=== PATIENT | female | born 1975 | race Caucasian/White ===

== ENCOUNTER 2016-10-24 19:10 | Inpatient (IN) | payer OTHER ==
[2016-10-24] MEDS ORDERED: Sodium Chloride 0.9% 1,000 ML IV ONE ×2 (19:48→21:18)
[2016-10-24] MEDS ORDERED: Iohexol 240 (50 ml) PO STA (19:48)
[2016-10-24] MEDS ORDERED: Iohexol 240 (50 ml) ONE (20:01)
[2016-10-24 20:04] LABS: BASO % 0.3 % (0.0-2.0); EOS # 0.1 K/uL (0.0-0.7); EOS % 1.4 % (0.0-4.0); HEMATOCRIT 31.9 % (34.0-47.0); LYMPH # 1.5 K/uL (1.0-4.3); LYMPH % 20.7 % (20.0-40.0); MEAN CELL VOLUME 73.4 fL (81.0-99.0); MEAN CORPUSCULAR HEMOGLOBIN 23.2 pg (27.0-31.0); MEAN CORPUSCULAR HGB CONC 31.6 g/dL (33.0-37.0); MEAN PLATELET VOLUME 7.4 fL (7.2-11.7); MONO # 0.4 K/uL (0.0-0.8); MONO % 6.1 % (0.0-10.0); RED CELL DISTRIBUTION WIDTH 16.4 % (11.5-14.5); WHITE BLOOD COUNT 7.2 K/uL (4.8-10.8)
[2016-10-24] MEDS ORDERED: Iodixanol 320 MG/ML 100 ML BOTTLE IV ONE (20:09)
[2016-10-24 20:11] LABS: CHLORIDE 103 mmol/L (98-107)
[2016-10-24 20:12] LABS: POTASSIUM 3.9 mmol/L (3.6-5.2); SODIUM 138 mmol/L (132-148)
--- NOTE | 2016-10-24 20:13 | C.PDOC ---
History Of Present Illness 40 y/o female presents to ED with complaints of abdominal discomfort and feeling "bloated" since last week. Patient states pain increased today with associated nausea, vomiting and loose stool. Patient reports she was able to eat after vomiting episode and loose stool resolved. Patient states pain became worse during the day which prompted visit to ED today. Patient denies fever, chills, sick contacts, urinary symptoms or any other complaints at this time. LMP 10/04/16. Time Seen by Provider: 10/24/16 19:43 Chief Complaint (Nursing): Abdominal Pain History Per: Patient History/Exam Limitations: no limitations Onset/Duration Of Symptoms: Days Current Symptoms Are (Timing): Still Present Past Medical History Reviewed: Historical Data, Nursing Documentation, Vital Signs Vital Signs: Last Vital Signs Temp 97.8 F 10/24/16 23:36 Pulse 92 H 10/24/16 23:36 Resp 18 10/24/16 23:36 BP 102/62 10/24/16 23:36 Pulse Ox 98 10/24/16 23:36 - Medical History PMH: Anemia Family History: States: No Known Family Hx - Social History Hx Tobacco Use: No Hx Alcohol Use: Yes Hx Substance Use: No - Immunization History Hx Tetanus Toxoid Vaccination: No Hx Influenza Vaccination: No Hx Pneumococcal Vaccination: No Review Of Systems Except As Marked, All Systems Reviewed And Found Negative. Constitutional: Negative for: Fever, Chills Gastrointestinal: Positive for: Vomiting, Abdominal Pain, Diarrhea. Negative for: Hematochezia Genitourinary: Negative for: Dysuria, Frequency, Hematuria Musculoskeletal: Negative for: Back Pain Skin: Negative for: Rash Physical Exam - Physical Exam Appears: Non-toxic, Other (uncomfortable) Skin: Normal Color, Warm, Dry, No Rash Head: Atraumatic, Normacephalic Eye(s): bilateral: Normal Inspection Oral Mucosa: Moist Cardiovascular: Rhythm Regular Respiratory: Normal Breath Sounds, No Rales, No Rhonchi, No Wheezing Gastrointestinal/Abdominal: Bowel Sounds (Quiet), Soft, Tenderness (to epigastric and suprapubic area), Guarding, No Rebound Back: No CVA Tenderness Extremity: Normal ROM, Capillary Refill (<2 seconds) Neurological/Psych: Oriented x3, Normal Speech ED Course And Treatment - Laboratory Results Result Diagrams: 10/24/16 19:58 10/24/16 19:58 Lab Interpretation: No Acute Changes O2 Sat by Pulse Oximetry: 96 (RA) Pulse Ox Interpretation: Normal - CT Scan/US CT abdomen and pelvis with contrast Other Rad Studies (CT/US): Read By Radiologist, Radiology Report Reviewed CT/US Interpretation: enlarged appendix measuring up to 0.9cm in diameter. Mild mucosal enhancement. Apparent minimal stranding about appendix. Reevaluation Time: 23:55 Reassessment Condition: Improved - Physician Consult Information Time Consulting Physician Contacted: 23:55 Physician Contacted: Owen Balderas Outcome Of Conversation: Patient to be admitted to Dr Petty and he will evaluate. Disposition - Disposition Disposition: HOSPITALIZED Disposition Time: 23:56 Condition: STABLE - POA Present On Arrival: None - Clinical Impression Clinical Impression: Appendicitis - Scribe Statement The provider has reviewed the documentation as recorded by the Jorgeibtalisha Morrow All medical record entries made by the Jorgeibtalisha were at my direction and personally dictated by me. I have reviewed the chart and agree that the record accurately reflects my personal performance of the history, physical exam, medical decision making, and the department course for this patient. I have also personally directed, reviewed, and agree with the discharge instructions and disposition.
[2016-10-24 20:14] LABS: ALB/GLOB RATIO 1.1 (1.0-2.1); ALKALINE PHOSPHATASE 145 U/L (38-126); AST/SGOT 37 U/L (14-36); BILIRUBIN,TOTAL 0.6 mg/dL (0.2-1.3); BLOOD UREA NITROGEN 10 mg/dL (7-17); CARBON DIOXIDE 21 mmol/L (22-30); GFR AFRICAN-AMERICAN > 60; TOTAL PROTEIN 7.3 g/dL (6.3-8.3)
[2016-10-24 20:15] LABS: ALT/SGPT 60 U/L (9-52); CALCIUM 8.2 mg/dl (8.6-10.4); GLUCOSE,RANDOM 87 mg/dL (65-105)
[2016-10-24 20:38] LABS: RBC URINE 10 /hpf (0-3); URINE BACTERIA RARE (<OCC); URINE BILIRUBIN NEGATIVE (NEGATIVE); URINE BLOOD 2+ (NEGATIVE); URINE COLOR Yellow (YELLOW); URINE GLUCOSE (UA) NORMAL (Normal); URINE KETONE NEGATIVE (NEGATIVE); URINE LEUKOCYTE ESTERASE NEG Leu/uL (Negative); URINE PROTEIN NEGATIVE (NEGATIVE); URINE UROBILINOGEN NORMAL mg/dL (0.2-1.0); WBC URINE < 1 /hpf (0-5)
--- NOTE | 2016-10-24 23:30 | CT ---
EXAM: CT Abdomen and Pelvis With Intravenous Contrast CLINICAL HISTORY: 40 years old, female; Pain; Abdominal pain; Periumbilical; Additional info: Abd pain TECHNIQUE: Axial computed tomography images of the abdomen and pelvis with intravenous contrast. All CT scans at this facility use one or more dose reduction techniques, viz.: automated exposure control; ma/kV adjustment per patient size (including targeted exams where dose is matched to indication; i.e. head); or iterative reconstruction technique. Coronal and sagittal reformatted images were created and reviewed. CONTRAST: 100 mL of VISIPAQUE 320 administered intravenously. COMPARISON: No relevant prior studies available. FINDINGS: Lower thorax: No acute findings. ABDOMEN: Liver: Unremarkable. No mass. Gallbladder and bile ducts: No calcified stones. No ductal dilation. Pancreas: No ductal dilation. No mass. Spleen: No splenomegaly. Adrenals: No mass. Kidneys and ureters: No mass. No hydronephrosis. Stomach and bowel: No definite mural thickening. No obstruction. Appendix: Enlarged appendix, measuring up to 0.9 cm in diameter. Mild mucosal enhancement. Apparent minimal stranding about appendix. PELVIS: Bladder: Unremarkable. Reproductive: Probable involuting RIGHT ovarian cyst/follicle. ABDOMEN and PELVIS: Intraperitoneal space: Small amount of fluid within RIGHT paracolic gutter. No free air. Bones/joints: Chronic L5 pars defects. No acute fracture. Soft tissues: Tiny umbilical hernia containing fat. Vasculature: Circumaortic LEFT renal vein. No aneurysm. Lymph nodes: No pathologically enlarged lymph nodes. IMPRESSION: 1. Findings concerning for appendicitis. Clinical correlation is needed. 2. Incidental/non-acute findings are described above.
[2016-10-25] MEDS ORDERED: Piperacillin/Tazobact 3.375 gm 100 ML IVPB ONE (00:24)
[2016-10-25] MEDS: Piperacillin/Tazobact 3.375 GM in Sodium Chloride 100 ML IVPB SCH ×3 (00:44→17:32)
--- NOTE | 2016-10-25 02:04 | CP.PCM.CON ---
<Rolando Adames - Last Filed: 10/25/16 01:55> History of Present Illness - History of Present Illness History of Present Illness: General Surgery Consult Re: acute appendicitis HPI: 40F presented to ED c/o abdominal pain that began this AM in the periumbilical region. Pt has never had this pain before but has had a bloating crampy feeling for 1 week with some diarrhea and subjective fevers earlier in the week. Pain has gotten worse and moved to the lower quadrants at this time and she had some emesis of food, no blood. Denies current F/C, N/V/D, BRBPR, chest pain, SOB, dysuria, back pain. PMH: Lupus, anemia PSH: tubal ligation SH: Occasional EtOH, no tobacco or drug use All: Codeine/tylenol - chest rash Meds: Denies Review of Systems - Review of Systems All systems: reviewed and no additional remarkable complaints except (as per HPI ) Past Patient History - Infectious Disease Hx of Infectious Diseases: None - Past Medical History & Family History Past Medical History?: No - Past Social History Smoking Status: Never Smoked - CARDIAC Hx Cardiac Disorders: No - PULMONARY Hx Respiratory Disorders: No - NEUROLOGICAL Hx Neurological Disorder: Yes Other/Comment: mac 2008 - HEENT Hx HEENT Problems: No - RENAL Hx Chronic Kidney Disease: No Hx Dialysis: No - ENDOCRINE/METABOLIC Hx Endocrine Disorders: Yes Hx Systemic Lupus Erythematosus: Yes - HEMATOLOGICAL/ONCOLOGICAL Hx Blood Disorders: Yes Hx Anemia: Yes - INTEGUMENTARY Hx Dermatological Problems: No - MUSCULOSKELETAL/RHEUMATOLOGICAL Hx Musculoskeletal Disorders: No Hx Falls: No - GASTROINTESTINAL Hx Gastrointestinal Disorders: No - GENITOURINARY/GYNECOLOGICAL Hx Genitourinary Disorders: No - PSYCHIATRIC Hx Psychophysiologic Disorder: No Hx Substance Use: No - SURGICAL HISTORY Hx Surgeries: No Hx Tubal Ligation: Yes (2010) - ANESTHESIA Hx Anesthesia: No Hx Anesthesia Reactions: No Meds Allergies/Adverse Reactions: Allergies Allergy/AdvReac Type Severity Reaction Status Date / Time acetaminophen AdvReac Verified 10/24/16 19:17 [From Tylenol-Codeine] codeine AdvReac Verified 10/24/16 19:17 [From Tylenol-Codeine] - Medications Medications: Current Medications Metronidazole (Flagyl) 500 mg in 100 mls @ 100 mls/hr IVPB Q12 [facility] Piperacillin Sod/Tazobactam (Sod 3.375 gm/ Sodium Chloride) 100 mls @ 200 mls/ hr IVPB Q8H [facility] [place] Last Admin: 10/25/16 00:44 Dose: 200 mls/hr Sodium Chloride (Sodium Chloride 0.9%) 1,000 mls @ 75 mls/hr IV .[id number] [facility] [place] Ketorolac Tromethamine (Toradol) 15 mg IVP Q6H [facility] [place] Stop: 10/29/16 19:31 Morphine Sulfate (Morphine) 2 mg IVP Q4 PRN PRN Reason: Pain, severe (8-10) Pantoprazole Sodium (Protonix Inj) 40 mg IVP DAILY [facility] [place] Physical Exam - Constitutional Appears: Non-toxic, No Acute Distress - Head Exam Head Exam: ATRAUMATIC, NORMOCEPHALIC - Eye Exam Eye Exam: EOMI. absent: Scleral icterus - ENT Exam ENT Exam: Mucous Membranes Dry Additional comments: trachea midline - Respiratory Exam Respiratory Exam: NORMAL BREATHING PATTERN. absent: Respiratory Distress - Cardiovascular Exam Cardiovascular Exam: RRR, +S1, +S2 - GI/Abdominal Exam GI & Abdominal Exam: Guarding, Rebound (over RLQ), Soft, Tenderness (in lower quadrants ). absent: Distended, Firm, Rigid Additional comments: + rosving's sign - Rectal Exam Rectal Exam: Deferred - Extremities Exam Extremities exam: Positive for: pedal pulses present. Negative for: calf tenderness, pedal edema - Back Exam Back exam: absent: CVA tenderness (L), CVA tenderness (R) - Neurological Exam Neurological exam: Alert, Oriented x3 - Psychiatric Exam Psychiatric exam: Normal Affect, Normal Mood - Skin Skin Exam: Dry, Warm Results - Vital Signs Recent Vital Signs: Last Vital Signs Temp 97.8 F 10/24/16 23:36 Pulse 92 H 10/24/16 23:36 Resp 18 10/24/16 23:36 BP 102/62 10/24/16 23:36 Pulse Ox 96 10/24/16 23:56 - Labs Result Diagrams: 10/24/16 19:58 10/24/16 19:58 - Imaging and Cardiology CT scan - abdomen Status: Image reviewed by me, Report reviewed by me Assessment & Plan - Assessment and Plan (Free Text) Assessment: 40F with acute appendicitis Plan: Zosyn NPO IVF analgesia Zofran Urine test EKG Likely OR Saturday Consent in chart Will D/W Dr. Andrey Adames PGY4 <Owen Balderas - Last Filed: 10/27/16 17:38> Results - Vital Signs Recent Vital Signs: Last Vital Signs Temp 98.3 F 10/26/16 08:35 Pulse 73 10/26/16 08:35 Resp 20 10/26/16 08:35 BP 94/60 L 10/26/16 08:35 Pulse Ox 97 10/26/16 08:35 - Labs Result Diagrams: 10/26/16 07:05 10/26/16 07:05 Attending/Attestation - Attestation I have personally seen and examined this patient.: Yes I have fully participated in the care of the patient.: Yes I have reviewed all pertinent clinical information: Yes Notes (Text): 10/27/16 17:38 Pt was seen and examined at bedside Agree with above note and assessment Pt with Acute Appendicitis OR for Lap appendectomy possible Open Consent NPO,IVF C.w IV antibiotics Plan d.w pt in detail Risk and benefit explained in detail.
[2016-10-25] MEDS: Sodium Chloride 0.9% 1,000 ML IV SCH ×2 (02:05→16:30)
--- NOTE | 2016-10-25 08:00 | CP.PCM.PN ---
Subjective - Date & Time of Evaluation Date of Evaluation: 10/25/16 Time of Evaluation: 09:00 - Subjective Subjective: PGY3 on medicine Dr. Petty service: Pt seen and examined at bedside this morning. Pt reports abdominal pain improved mildly with medicine. No other complaints at this time. NPO for surgery today. Objective - Vital Signs/Intake and Output Vital Signs (last 24 hours): Temp Pulse Resp BP Pulse Ox 98.7 F 86 20 107/71 96 10/25/16 04:10 10/25/16 04:10 10/25/16 04:10 10/25/16 04:10 10/25/16 04:10 - Medications Medications: Current Medications Metronidazole (Flagyl) 500 mg in 100 mls @ 100 mls/hr IVPB Q12 [facility] Piperacillin Sod/Tazobactam (Sod 3.375 gm/ Sodium Chloride) 100 mls @ 200 mls/ hr IVPB Q8H [facility] Last Admin: 10/25/16 00:44 Dose: 200 mls/hr Sodium Chloride (Sodium Chloride 0.9%) 1,000 mls @ 75 mls/hr IV .[id number] [facility] Last Admin: 10/25/16 02:05 Dose: 75 mls/hr Ketorolac Tromethamine (Toradol) 15 mg IVP Q6H [facility] Stop: 10/29/16 19:31 Last Admin: 10/25/16 06:41 Dose: 15 mg Morphine Sulfate (Morphine) 2 mg IVP Q4 PRN PRN Reason: Pain, severe (8-10) Ondansetron HCl (Zofran Inj) 4 mg IVP Q4H PRN PRN Reason: Nausea/Vomiting Pantoprazole Sodium (Protonix Inj) 40 mg IVP DAILY [facility] - Constitutional Appears: Non-toxic, No Acute Distress - Head Exam Head Exam: NORMOCEPHALIC - Eye Exam Eye Exam: Normal appearance - Respiratory Exam Respiratory Exam: Clear to Ausculation Bilateral, NORMAL BREATHING PATTERN. absent: Wheezes - Cardiovascular Exam Cardiovascular Exam: REGULAR RHYTHM, +S1, +S2. absent: Gallop - GI/Abdominal Exam GI & Abdominal Exam: Guarding, Soft, Tenderness, Normal Bowel Sounds - Neurological Exam Neurological Exam: Alert, Awake, Oriented x3 - Psychiatric Exam Psychiatric exam: Normal Mood Assessment and Plan - Assessment and Plan (Free Text) Assessment: Appendicitis CT showed appendicitis, tiny umbilical hernia and possible involuting right ovarian cyst/follicle per report. General surgery Dr. Balderas consulted, help appreciated. Flagyl 500mg IV q12H. Zosyn 3.375g IV q8H. Toradol 15mg IV q6 PRN. Morphine 2mg IV q4 PRN. NS@75ml/hr. NPO for OR today. Prophylactic measure SCD, Protonix.
[2016-10-25] MEDS ORDERED: metroNIDAZOLE IV 500 mg/100 ml 500 MG/100 ML BAG IVPB SCH (10:00)
[2016-10-25 11:37] LABS: BASO % 0.3 % (0.0-2.0); EOS # 0.2 K/uL (0.0-0.7); EOS % 2.1 % (0.0-4.0); HEMATOCRIT 31.1 % (34.0-47.0); LYMPH # 1.8 K/uL (1.0-4.3); LYMPH % 24.6 % (20.0-40.0); MEAN CELL VOLUME 73.8 fL (81.0-99.0); MEAN CORPUSCULAR HEMOGLOBIN 23.4 pg (27.0-31.0); MEAN CORPUSCULAR HGB CONC 31.7 g/dL (33.0-37.0); MONO # 0.5 K/uL (0.0-0.8); MONO % 7.1 % (0.0-10.0); RED CELL DISTRIBUTION WIDTH 15.9 % (11.5-14.5); WHITE BLOOD COUNT 7.5 K/uL (4.8-10.8)
[2016-10-25 11:50] LABS: CHLORIDE 106 mmol/L (98-107); SODIUM 137 mmol/L (132-148)
[2016-10-25 11:51] LABS: POTASSIUM 3.4 mmol/L (3.6-5.2)
[2016-10-25 11:53] LABS: ALKALINE PHOSPHATASE 139 U/L (38-126); AST/SGOT 35 U/L (14-36); BILIRUBIN,TOTAL 0.6 mg/dL (0.2-1.3); CARBON DIOXIDE 23 mmol/L (22-30); GFR AFRICAN-AMERICAN > 60; TOTAL PROTEIN 6.8 g/dL (6.3-8.3)
[2016-10-25 11:54] LABS: ALT/SGPT 58 U/L (9-52); BLOOD UREA NITROGEN 8 mg/dL (7-17); GLUCOSE,RANDOM 78 mg/dL (65-105)
[2016-10-25] MEDS ORDERED: ceFAZolin IV 1 gm in Dextrose 0 GM/0 ML BAG IVPB ONE (12:26)
[2016-10-25] MEDS ORDERED: Bupivacaine-Epi 0.25%-1:200,000 PF Inj ONE (12:26)
[2016-10-25] MEDS ORDERED: Lidocaine 1% Inj (20ml) ONE (12:26)
[2016-10-25] MEDS ORDERED: Lactated Ringer's 1,000 ML IV ONE (12:55)
[2016-10-25] MEDS ORDERED: Propofol 10 mg/ml Inj (20 ML) ONE (13:00)
[2016-10-25] MEDS ORDERED: Midazolam 2 MG/2 ML VIAL ONE (13:00)
[2016-10-25] MEDS ORDERED: Rocuronium 10 mg/ml (5 ml) ONE (13:01)
[2016-10-25] MEDS ORDERED: Neostigmine Methylsulfate 3mg/3ml Syringe IV ONE (14:05)
[2016-10-25] MEDS ORDERED: HYDROmorphone 0.5 mg/0.5 ml ISec IVP PRN ×2 (14:35→20:52)
--- NOTE | 2016-10-25 14:38 | PCM.SURG1 ---
Surgeon's Initial Post Op Note - Surgeon's Notes Surgeon: Andrey Commissioned Sales Associate: FELICITAS ClaireY2, Manolo, MS3 Pre-Operative Diagnosis: Acute appendicitis Operative Findings: enlarged appendix Post-Operative Diagnosis: same Operation Performed: Laparoscopic appendectomy Specimen/Specimens Removed: Appendix Estimated Blood Loss: EBL {In ML}: 10 Date of Surgery/Procedure: 10/25/16 Time of Surgery/Procedure: 13:15
[2016-10-25] MEDS ORDERED: HYDROmorphone 1 mg/ml ISec ONE (14:57)
[2016-10-25] MEDS ORDERED: Sodium Chloride 0.9% 1,000 ML IV ONE ×2 (15:55)
--- NOTE | 2016-10-25 16:36 | CP.PCM.HP ---
Past Patient History - Infectious Disease Hx of Infectious Diseases: None - Past Medical History & Family History Past Medical History?: No - Past Social History Smoking Status: Never Smoked - CARDIAC Hx Cardiac Disorders: No - PULMONARY Hx Respiratory Disorders: No - NEUROLOGICAL Hx Neurological Disorder: Yes Other/Comment: menelaineitis 2008 - HEENT Hx HEENT Problems: No - RENAL Hx Chronic Kidney Disease: No Hx Dialysis: No - ENDOCRINE/METABOLIC Hx Endocrine Disorders: Yes Hx Systemic Lupus Erythematosus: Yes - HEMATOLOGICAL/ONCOLOGICAL Hx Blood Disorders: Yes Hx Anemia: Yes - INTEGUMENTARY Hx Dermatological Problems: No - MUSCULOSKELETAL/RHEUMATOLOGICAL Hx Musculoskeletal Disorders: No Hx Falls: No - GASTROINTESTINAL Hx Gastrointestinal Disorders: No - GENITOURINARY/GYNECOLOGICAL Hx Genitourinary Disorders: No - PSYCHIATRIC Hx Psychophysiologic Disorder: No Hx Substance Use: No - SURGICAL HISTORY Hx Surgeries: No Hx Tubal Ligation: Yes (2010) - ANESTHESIA Hx Anesthesia: No Hx Anesthesia Reactions: No Meds Allergies/Adverse Reactions: Allergies Allergy/AdvReac Type Severity Reaction Status Date / Time acetaminophen AdvReac Verified 10/24/16 19:17 [From Tylenol-Codeine] codeine AdvReac Verified 10/24/16 19:17 [From Tylenol-Codeine] Physical Exam - Constitutional Appears: Well - Head Exam Head Exam: ATRAUMATIC, NORMAL INSPECTION, NORMOCEPHALIC - Eye Exam Eye Exam: EOMI, Normal appearance, PERRL Pupil Exam: NORMAL ACCOMODATION, PERRL - ENT Exam ENT Exam: Mucous Membranes Moist, Normal Exam - Neck Exam Neck exam: Positive for: Normal Inspection - Respiratory Exam Respiratory Exam: Decreased Breath Sounds - Cardiovascular Exam Cardiovascular Exam: REGULAR RHYTHM, +S1, +S2 - GI/Abdominal Exam GI & Abdominal Exam: Diminished Bowel Sounds, Soft - Rectal Exam Rectal Exam: Deferred Results - Vital Signs Recent Vital Signs: Last Vital Signs Temp 99.5 F 10/25/16 15:45 Pulse 91 H 10/25/16 15:45 Resp 16 10/25/16 15:45 BP 104/70 10/25/16 15:45 Pulse Ox 100 10/25/16 15:45 - Labs Result Diagrams: 10/25/16 11:28 10/25/16 11:28 Labs: Laboratory Results - last 24 hr 10/25/16 10/25/16 10/25/16 09:07 11:28 11:28 WBC 7.5 RBC 4.21 Hgb 9.8 L Hct 31.1 L MCV 73.8 L MCH 23.4 L MCHC 31.7 L RDW 15.9 H Plt Count 312 MPV 8.0 Neut % (Auto) 65.9 Lymph % (Auto) 24.6 Ector % (Auto) 7.1 Eos % (Auto) 2.1 Baso % (Auto) 0.3 Neut # 4.9 Lymph # 1.8 Ector # 0.5 Eos # 0.2 Baso # 0.0 PT 11.7 INR 1.0 APTT 30 Sodium 137 Potassium 3.4 L Chloride 106 Carbon Dioxide 23 Anion Gap 11 BUN 8 Creatinine 0.5 L Est GFR ( Amer) > 60 Est GFR (Non-Af Amer) > 60 Random Glucose 78 Calcium 8.0 L Total Bilirubin 0.6 AST 35 ALT 58 H Alkaline Phosphatase 139 H Total Protein 6.8 Albumin 3.4 L Globulin 3.4 Albumin/Globulin Ratio 1.0
[2016-10-25] MEDS ORDERED: Potassium Chloride 20 mEq ER Tab PO STA (19:42)
[2016-10-26] MEDS: Piperacillin/Tazobact 3.375 GM in Sodium Chloride 100 ML IVPB SCH (00:11)
[2016-10-26 01:59] VITALS: RESP 20
[2016-10-26] MEDS: Benzocaine/Menthol (Cepacol) Lozenge MT PRN ×2 (03:29→10:36)
[2016-10-26] MEDS: Sodium Chloride 0.9% 1,000 ML IV SCH (03:30)
[2016-10-26 04:50] VITALS: PULSE 73; O2SAT 97
[2016-10-26 07:18] LABS: BASO % 0.1 % (0.0-2.0); HEMATOCRIT 29.7 % (34.0-47.0); LYMPH # 0.9 K/uL (1.0-4.3); LYMPH % 8.3 % (20.0-40.0); MEAN CELL VOLUME 73.8 fL (81.0-99.0); MEAN CORPUSCULAR HEMOGLOBIN 23.7 pg (27.0-31.0); MEAN CORPUSCULAR HGB CONC 32.1 g/dL (33.0-37.0); MEAN PLATELET VOLUME 7.8 fL (7.2-11.7); MONO # 0.5 K/uL (0.0-0.8); MONO % 4.5 % (0.0-10.0); PLATELET COUNT 327 K/uL (130-400); RED CELL DISTRIBUTION WIDTH 16.3 % (11.5-14.5); WHITE BLOOD COUNT 11.4 K/uL (4.8-10.8)
[2016-10-26 07:30] LABS: CHLORIDE 106 mmol/L (98-107)
[2016-10-26 07:31] LABS: POTASSIUM 3.7 mmol/L (3.6-5.2); SODIUM 138 mmol/L (132-148)
[2016-10-26 07:33] LABS: ALKALINE PHOSPHATASE 138 U/L (38-126); ALT/SGPT 60 U/L (9-52); AST/SGOT 33 U/L (14-36); BILIRUBIN,TOTAL 0.5 mg/dL (0.2-1.3); CARBON DIOXIDE 21 mmol/L (22-30); GFR AFRICAN-AMERICAN > 60; TOTAL PROTEIN 6.8 g/dL (6.3-8.3)
[2016-10-26 07:34] LABS: BLOOD UREA NITROGEN 7 mg/dL (7-17); CALCIUM 8.5 mg/dl (8.6-10.4); GLUCOSE,RANDOM 113 mg/dL (65-105)
[2016-10-26 08:36] VITALS: BP 94/60; TEMP 98.3
[2016-10-26 09:00] LABS: NEUTROPHIL 84 % (50-75); TOTAL CELLS COUNTED 100
--- NOTE | 2016-10-26 10:17 | CP.PCM.PN ---
<Rickey Claire - Last Filed: 10/26/16 10:14> Subjective - Date & Time of Evaluation Date of Evaluation: 10/26/16 Time of Evaluation: 08:00 - Subjective Subjective: SURGERY NOTE FOR DR. BALDERAS 40F seen and examined at bedside. Patient states she feels much better, pain is well controlled, she is tolerating diet, denies nausea, vomiting, fevers and chills. Objective - Vital Signs/Intake and Output Vital Signs (last 24 hours): Temp Pulse Resp BP Pulse Ox 98.3 F 73 20 94/60 L 97 10/26/16 08:35 10/26/16 08:35 10/26/16 08:35 10/26/16 08:35 10/26/16 08:35 Intake and Output: 10/26/16 10/26/16 06:59 18:59 Intake Total 725 Balance 725 - Medications Medications: Current Medications Benzocaine/Menthol (Cepacol Sore Throat) 1 karey MT Q2 PRN PRN Reason: Sore Throat Last Admin: 10/26/16 03:29 Dose: 1 karey Hydromorphone HCl (Dilaudid) 0.5 mg IVP Q4H PRN PRN Reason: Pain, severe (8-10) Last Admin: 10/25/16 21:22 Dose: 0.5 mg Ketorolac Tromethamine (Toradol) 30 mg IVP Q6 [facility] Last Admin: 10/26/16 05:45 Dose: 30 mg Ondansetron HCl (Zofran Inj) 4 mg IVP Q4H PRN PRN Reason: Nausea/Vomiting Pantoprazole Sodium (Protonix Inj) 40 mg IVP DAILY [facility] Last Admin: 10/25/16 12:18 Dose: 40 mg - Labs Labs: 10/26/16 07:05 10/26/16 07:05 PT 11.7 SECONDS (9.7-12.2) 10/25/16 09:07 INR 1.0 10/25/16 09:07 APTT 30 SECONDS (21-34) 10/25/16 09:07 - Constitutional Appears: Non-toxic, No Acute Distress - Respiratory Exam Respiratory Exam: Clear to Ausculation Bilateral, NORMAL BREATHING PATTERN - Cardiovascular Exam Cardiovascular Exam: REGULAR RHYTHM, +S1, +S2 - GI/Abdominal Exam GI & Abdominal Exam: Soft. absent: Distended, Firm, Guarding, Rigid, Tenderness , Rebound Additional comments: dressings clean dry and intact - Neurological Exam Neurological Exam: Alert, Awake Assessment and Plan - Assessment and Plan (Free Text) Assessment: 40F s/p laparoscopic appendectomy POD1 Plan: - continue diet - continue pain control - patient clear for DC on pain medication and stool softeners Further recs discuss with Dr. Andrey Claire, PGY2 <Owen Balderas - Last Filed: 10/27/16 17:44> Objective - Vital Signs/Intake and Output Vital Signs (last 24 hours): Temp Pulse Resp BP Pulse Ox 98.3 F 73 20 94/60 L 97 10/26/16 08:35 10/26/16 08:35 10/26/16 08:35 10/26/16 08:35 10/26/16 08:35 - Labs Labs: 10/26/16 07:05 10/26/16 07:05 PT 11.7 SECONDS (9.7-12.2) 10/25/16 09:07 INR 1.0 10/25/16 09:07 APTT 30 SECONDS (21-34) 10/25/16 09:07 Attending/Attestation - Attestation I have personally seen and examined this patient.: Yes I have fully participated in the care of the patient.: Yes I have reviewed all pertinent clinical information, including history, physical exam and plan: Yes Notes (Text): 10/27/16 17:43 Pt was seen and examined at bedside Agree with above note and assessment
--- NOTE | 2016-10-26 11:48 | CP.PCM.PN ---
Subjective - Date & Time of Evaluation Date of Evaluation: 10/26/16 Time of Evaluation: 07:00 - Subjective Subjective: PGY-[address] Petty Patient seen and examined at bedside. No acute events overnight. Patient reports to have pain at surgery sites. Pain is controlled well with pain medications. Patient denies headache, fever, chill, shortness of breath, chest pain, nausea, vomiting or diarrhea. Objective - Vital Signs/Intake and Output Vital Signs (last 24 hours): Temp Pulse Resp BP Pulse Ox 98.3 F 73 20 94/60 L 97 10/26/16 08:35 10/26/16 08:35 10/26/16 08:35 10/26/16 08:35 10/26/16 08:35 Intake and Output: 10/26/16 10/26/16 06:59 18:59 Intake Total 725 Balance 725 - Medications Medications: Current Medications Benzocaine/Menthol (Cepacol Sore Throat) 1 karey MT Q2 PRN PRN Reason: Sore Throat Last Admin: 10/26/16 10:36 Dose: 1 karey Hydromorphone HCl (Dilaudid) 0.5 mg IVP Q4H PRN PRN Reason: Pain, severe (8-10) Last Admin: 10/25/16 21:22 Dose: 0.5 mg Ketorolac Tromethamine (Toradol) 30 mg IVP Q6 [facility] Last Admin: 10/26/16 05:45 Dose: 30 mg Ondansetron HCl (Zofran Inj) 4 mg IVP Q4H PRN PRN Reason: Nausea/Vomiting Pantoprazole Sodium (Protonix Inj) 40 mg IVP DAILY [facility] Last Admin: 10/26/16 10:32 Dose: 40 mg - Labs Labs: 10/26/16 07:05 10/26/16 07:05 PT 11.7 SECONDS (9.7-12.2) 10/25/16 09:07 INR 1.0 10/25/16 09:07 APTT 30 SECONDS (21-34) 10/25/16 09:07 - Constitutional Appears: Non-toxic, No Acute Distress - Head Exam Head Exam: ATRAUMATIC, NORMAL INSPECTION - Eye Exam Eye Exam: Normal appearance Pupil Exam: NORMAL ACCOMODATION - ENT Exam ENT Exam: Mucous Membranes Moist - Respiratory Exam Respiratory Exam: Clear to Ausculation Bilateral, NORMAL BREATHING PATTERN. absent: Respiratory Distress - Cardiovascular Exam Cardiovascular Exam: REGULAR RHYTHM, +S1, +S2. absent: Murmur - GI/Abdominal Exam GI & Abdominal Exam: Soft, Normal Bowel Sounds Additional comments: abdominal wound dressing clearn, dry, and intact - Extremities Exam Extremities Exam: Full ROM, Normal Capillary Refill, Normal Inspection. absent : Joint Swelling, Pedal Edema - Neurological Exam Neurological Exam: Alert, Awake, Oriented x3 - Psychiatric Exam Psychiatric exam: Normal Affect, Normal Mood - Skin Skin Exam: Normal Color, Warm Assessment and Plan - Assessment and Plan (Free Text) Assessment: Acute Appendicitis -S/p appendectomy POD #1 -Tolerating diet well -Pain controlled well -Cleared to be discharged per surgery team -Follow up PMD and Dr. Balderas as outpatient -No heavy lifting in 2 weeks PPX -SCD -Protonix Case Discussed with attending Dr. Petty
--- NOTE | 2016-10-28 08:14 | OP ---
PROCEDURE DATE: 10/25/2016 PREOPERATIVE DIAGNOSIS: Acute appendicitis. POSTOPERATIVE DIAGNOSES: 1. Acute suppurative appendicitis. 2. Pelvic purulent collection. PROCEDURES DONE: 1. Laparoscopic appendectomy. 2. Laparoscopic lysis of adhesion. 3. Laparoscopic drainage of pelvic abscess. SURGEON: Owen Balderas MD PROMOTIONS REPRESENTATIVE: Oziel Claire PGY-2 resident. TYPE OF ANESTHESIA: General endotracheal tube anesthesia and local anesthesia. ESTIMATED BLOOD LOSS: Around 20 mL. DRAINS: None. PATHOLOGY: Appendix was sent for the pathology. COMPLICATIONS: None. INTRAOPERATIVE FINDINGS: The patient had acute suppurative appendicitis with a purulent pelvic collection and the patient also had extensive postinfectious adhesion in the right lower quadrant and appendix was also in right paracecal position. DESCRIPTION OF THE PROCEDURE: On intraoperative step, this is a 40-year-old female was diagnosed with acute appendicitis and the patient was consented for laparoscopic appendectomy, possible open, brought to the OR, placed supine on the operating room table. After induction of the anesthesia, abdomen was prepped and draped in the usual sterile fashion. The supraumbilical transverse 1.5 cm incision was made after incising skin and subcutaneous tissue. The fascia was incised in the line of incision. Enedina port was placed and pneumoperitoneum was created. The 5-mm port was placed in suprapubic region, 12-mm port was placed in left lower quadrant, grasper and dissector was introduced. The omentum was firmly adhered to the right lower quadrant and omentum was lysed and moved away and the patient found to have a paracecal appendix and the loop of the ileum, as well as, cecum was adhered to the appendix and first lysis of adhesions was done and cecum was mobilized after incising the peritoneum on the right paracolic gutter and appendix base was identified, appendix appeared to be extremely thickened and edematous and there was purulent collection in the pelvic that was also suction and irrigated and after that the base was appendix was identified and mesoappendix was dissected with harmonic scalpel, base of the appendix was resected with the COLBY and there was proper hemostasis in each and every part of the procedure. After proper suction and irrigation of the pelvis, perihepatic, as well as periappendicular areas. All the ports were taken out, under vision, pneumoperitoneum was deflated, and appendix was sent off the table for the pathology. The umbilical wound was closed in two layers, the fascia with a 0 Vicryl interrupted sutures, skin with a 4-0 Monocryl, and dry sterile dressing was applied. The patient tolerated the procedure well. Count of the instruments and gauze was correct. There was no apparent complication. Owen Balderas MD MTDD
--- NOTE | 2016-10-30 17:53 | CARD ---
APPROVED REPORT EKG Measurement Heart [id number] <Conclusion> Normal sinus rhythm Normal ECG
== END 2016-10-26 14:41 | disposition home or self-care (01) | DRG 151 ==
LOC: C.ER 19:10 → C.9E 23:56 → C.6T 10-25 00:31
PROVIDERS: ADMIT Internal Medicine Nephrology; ATTEND Internal Medicine Nephrology
PROC: 0DNW4ZZ Release Peritoneum, Percutaneous Endoscopic Approach (ICD-10-PCS; 2016-10-25)
PROC: 0J9C3ZZ Drainage of Pelvic Region Subcutaneous Tissue and Fascia, Percutaneous Approach (ICD-10-PCS; 2016-10-25)
PROC: 0DTJ4ZZ Resection of Appendix, Percutaneous Endoscopic Approach (ICD-10-PCS; principal; 2016-10-25 11:15)
DX: K35.80 Unspecified acute appendicitis (principal); K66.0 Peritoneal adhesions (postprocedural) (postinfection); N73.9 Female pelvic inflammatory disease, unspecified

== ENCOUNTER 2017-05-21 12:09 | Emergency (ER) | payer OTHER ==
[2017-05-21] MEDS ORDERED: Lactated Ringer's 1,000 ML IVB STA (13:57)
[2017-05-21] MEDS ORDERED: Lactated Ringer's 1,000 ML ONE (14:11)
[2017-05-21 14:35] LABS: BASO % 0.8 % (0.0-2.0); EOS # 0.1 K/uL (0.0-0.7); EOS % 1.1 % (0.0-4.0); HEMOGLOBIN 9.8 g/dL (11.0-16.0); MEAN CELL VOLUME 70.6 fL (81.0-99.0); MEAN CORPUSCULAR HEMOGLOBIN 22.6 pg (27.0-31.0); MEAN PLATELET VOLUME 7.6 fL (7.2-11.7); MONO # 0.4 K/uL (0.0-0.8); MONO % 7.7 % (0.0-10.0); NEUT # 2.5 K/uL (1.8-7.0); NEUT % 50.4 % (50.0-75.0); NRBC % 0.1 % (0.0-2.0); RBC 4.36 Mil/uL (3.80-5.20); RED CELL DISTRIBUTION WIDTH 16.9 % (11.5-14.5)
[2017-05-21 14:47] LABS: ALB/GLOB RATIO 1.1 (1.0-2.1); ALBUMIN 4.2 g/dL (3.5-5.0); ALT/SGPT 46 U/L (9-52); AST/SGOT 32 U/L (14-36); BLOOD UREA NITROGEN 9 mg/dL (7-17); CALCIUM 8.7 mg/dl (8.6-10.4); GFR AFRICAN-AMERICAN > 60; GFR NON-AFRICAN AMERICAN > 60
[2017-05-21 15:15] LABS: FREE T4 0.78 ng/dL (0.78-2.19)
--- NOTE | 2017-05-21 15:46 | C.PDOC ---
Time Seen by Provider: 05/21/17 13:49 Chief Complaint (Nursing): Palpitations History Per: Patient Onset/Duration Of Symptoms: Hrs (last night), Waxing/Waning Current Symptoms Are (Timing): Still Present Quality Of Symptoms: Other (Unable to describe) Severity: Mild Exacerbating Factor(s): Pos: None Recent travel outside of the [place]: No Additional History Per: Prior Records Past Medical History Reviewed: Historical Data, Nursing Documentation, Vital Signs Vital Signs: Last Vital Signs Temp 98.5 F 05/21/17 12:37 Pulse 78 05/21/17 12:37 Resp 18 05/21/17 12:37 BP 121/82 05/21/17 12:37 Pulse Ox 98 05/21/17 12:37 - Medical History PMH: Anemia - [facility] Procedures DRAINAGE OF PELVIC SUBCU/FASCIA, PERC APPROACH (10/24/16) RELEASE PERITONEUM, PERCUTANEOUS ENDOSCOPIC APPROACH (10/24/16) RESECTION OF APPENDIX, PERCUTANEOUS ENDOSCOPIC APPROACH (10/24/16) Family History: States: Unknown Family Hx - Social History Hx Tobacco Use: No Hx Alcohol Use: No Hx Substance Use: No - Immunization History Hx Tetanus Toxoid Vaccination: No Hx Influenza Vaccination: No Hx Pneumococcal Vaccination: No Review Of Systems Except As Marked, All Systems Reviewed And Found Negative. Constitutional: Negative for: Fever, Weakness Respiratory: Negative for: Shortness of Breath, Hemoptysis Gastrointestinal: Negative for: Vomiting, Abdominal Pain Musculoskeletal: Negative for: Neck Pain, Back Pain, Leg Pain Skin: Negative for: Rash Neurological: Negative for: Weakness, Numbness Psych: Positive for: Anxiety Physical Exam - Physical Exam Appears: Non-toxic, No Acute Distress Skin: Normal Color, Warm, Dry, No Rash Head: Atraumatic, Normacephalic Eye(s): bilateral: Normal Inspection, PERRL, EOMI Neck: Normal ROM, Supple Chest: Symmetrical Cardiovascular: Rhythm Regular Respiratory: Normal Breath Sounds, No Accessory Muscle Use Gastrointestinal/Abdominal: Soft, No Tenderness Back: No CVA Tenderness Extremity: Normal ROM, No Pedal Edema, No Calf Tenderness Neurological/Psych: Oriented x3, Normal Motor, Normal Sensation ED Course And Treatment - Laboratory Results Result Diagrams: 05/21/17 14:29 05/21/17 14:29 Interpretation Of Abnormal: Mild anemia, otherwise unremarkable. ECG: Interpreted By Me, Viewed By Me ECG Rhythm: Sinus Rhythm ECG Interpretation: No Acute Changes Rate From EC O2 Sat by Pulse Oximetry: 98 Pulse Ox Interpretation: Normal Progress Note: Pt is now asymptomatic. Reassessment Condition: Improved Progress - Interventions Interventions:: Observation, Intravenous fluid - Medications Administered Oral: Other (Xanax) - Data Reviewed Data Reviewed: Lab, EKG, Old records - Patient Status Patient status: Completely improved - Continuity of Care Discussed patient case with:: Patient, ED Nurse - Patient Plan Patient Plan: Discharge, F/U with PCP, Continue present meds (Iron pills) Medical Decision Making Medical Decision Making: PERC rule negative. Disposition Counseled Patient/Family Regarding: Studies Performed, Diagnosis, Need For Followup, Rx Given - Disposition Referrals: Shaik Alvarado MD [Staff Provider] - Disposition: HOME/ ROUTINE Disposition Time: 15:47 Condition: IMPROVED Additional Instructions: Take you Iron supplements for your anemia. Follow up with your doctor for further evaluation and treatment. Return to the ER if you develop chest pain, shortness of breath, dizziness, pass out, worsening of symptoms or if you have any other concerns. Instructions: Palpitations (DC) Forms: [facility] (Lao), General Discharge Instructions - Clinical Impression Clinical Impression: Chest discomfort
[2017-05-21 16:07] VITALS: BP 113/77; PULSE 79; RESP 16; TEMP 97.6; O2SAT 100
--- NOTE | 2017-05-22 12:12 | CARD ---
APPROVED REPORT EKG Measurement Heart [id number] <Conclusion> Normal sinus rhythm Normal ECG
== END 2017-05-21 16:05 | disposition home or self-care (01) ==
LOC: C.ER 12:09
DX: R07.89 Other chest pain (principal)
CPT/HCPCS: 80053; 83735; 84439; 84443; 84484; 85025; 93005; 99285; J7120